=== PATIENT | female | born 1995 | race Native Hawaiian/Other Pacific Islander ===

== ENCOUNTER 2017-07-12 13:05 | Emergency (ER) | payer OTHER, BC ==
[~2017-07-12] VITALS: Ht 152.4 cm; Wt 95.3 kg
== END 2017-07-12 15:37 | disposition home or self-care (01) ==
LOC: ED 13:05
DX: K60.2 Anal fissure, unspecified (principal); K64.4 Residual hemorrhoidal skin tags
CPT/HCPCS: 99281